=== PATIENT | female | born 1955 | race Caucasian/White ===

== ENCOUNTER 2016-06-15 22:47 | Emergency (ER) | payer BC ==
[2016-06-15 23:00] VITALS: TEMP 98.2
[2016-06-15] MEDS ORDERED: ZYRTEC 10MG10 MG PO (23:15)
[2016-06-15] MEDS ORDERED: PERCOCET 325 MG1 TA2 PO (23:23)
[2016-06-15] MEDS ORDERED: VALIUM 2MG T2 MG/TAB PO (23:23)
[2016-06-15] MEDS ORDERED: ULTRAM 50MG TAB50 MG PO (23:23)
[2016-06-16 00:26] VITALS: BP 117/62; PULSE 77
[2016-08-15] MEDS ORDERED: BENADRYL25 M2 PO (11:23)
[2016-08-15] MEDS ORDERED: MAGNESIUM CITR100 MG PO (11:25)
[2016-08-15] MEDS ORDERED: OMEGA-31 SGL PO (11:25)
[2016-08-15] MEDS ORDERED: TURMERIC500 MG PO (15:51)
[2016-08-15] MEDS ORDERED: CRANBERRY FRUI425 MG PO (15:51)
[2016-08-15] MEDS ORDERED: PROBIOTIC FORMU1 CAP PO (15:52)
[2016-08-17] MEDS ORDERED: RHODIOLA ROSEA PO (06:49)
[2016-08-17] MEDS ORDERED: ASHWAGANDA PO (06:49)
== END 2016-06-16 01:16 | disposition home or self-care (01) ==
LOC: COL.ER 22:47
DX: M54.5 Low back pain (principal)
CPT/HCPCS: J1170; J1885; J2405

== ENCOUNTER → 2016-08-17 | Outpatient (CLI) | payer BC ==
[~2016-08-17] VITALS: Ht 170.2 cm; Wt 78.3 kg
[~2016-08-17] MED LIST: ASHWAGANDA PO; BENADRYL25 M2 PO; CRANBERRY FRUI425 MG PO; MAGNESIUM CITR100 MG PO; OMEGA-31 SGL PO; PERCOCET 325 MG1 TA2 PO; PROBIOTIC FORMU1 CAP PO; RHODIOLA ROSEA PO; TURMERIC500 MG PO; ULTRAM 50MG TAB50 MG PO; VALIUM 2MG T2 MG/TAB PO; ZYRTEC 10MG10 MG PO
[2016-08-17 06:53] VITALS: BP 107/77; PULSE 88
[2016-08-17 08:08] VITALS: BP 139/83; PULSE 73
== END ==
LOC: COL.RAD 06:30
DX: M51.26 Other intervertebral disc displacement, lumbar region (principal)
CPT/HCPCS: J3301